=== PATIENT | female | born 1960 | race Caucasian/White ===

== ENCOUNTER 2023-01-06 07:31 | Day surgery (SDC) | payer OTHER, SELFPAY ==
--- NOTE | 2023-01-06 | PATH_ITS ---
[facility] Accession Number: [id number] No. of containers..01 Tissue . 01 Material submitted: . colon - ASCENDING POLYP . 01 Diagnosis: Ascending Colon Polyp: Colonic mucosa with no diagnostic abnormality, consistent with polypoid redundancy. Negative for dysplasia or malignancy. Additional step sections examined. MRV 01/12/2023 1453 Local . 01 Electronically signed: . Miles Ridley MD, PhD, Pathologist NPI- [id number] . 01 Gross description: . ASCENDING POLYP: Received in formalin is 1 fragment(s) of carlos, soft tissue measuring 0.4 x 0.3 x 0.2 cm submitted entirely in 1 cassette(s) /FELICIA 01/10/2023 2221 Local . 01 Pathologist provided ICD-10: K63.5 . 01 CPT . 053637 Specimen Comment: A courtesy copy of this report has been sent to [phone] Performed at: 01 [facility] [address] [place] [address] [address] [facility], [place], [place] [id number] MD Toni Renner MD Phone: [phone]
[2023-01-06 07:46] VITALS: BP 147/82; PULSE 52; RESP 19; TEMP 36.6; O2SAT 98; BMI 20.1
[2023-01-06] MEDS: LACTATED RINGERS 1,000 ML 100 ML IV (07:56)
--- NOTE | 2023-01-06 09:00 | P.HP_ITS ---
History of Present Illness History of Present Illness Date Patient Seen: 01/06/23 Time Patient Seen: 09:00 Chief complaint: SDC Narrative: Paz is here for colonoscopy. Her last 1 was about 7 years ago. She would polyps at her first colonoscopy but not the one 7 years family history of colon cancer [facility] Surgical History (Updated 01/10/18 @ 06:33 by Conversion Provider) History of third molar tooth extraction Status post laparotomy Status post laparotomy Family History (Updated 01/19/16 @ 00:00 by Conversion Provider) Father Cancer Grandfather Diabetes mellitus Hypertension High cholesterol Grandmother Hypertension High cholesterol Mother Age: 87 Breast cancer Hypertension High cholesterol Social History household members: spouse Smoking Status: Never smoker alcohol intake: current Meds Home Medications and Allergies Allergies Allergy/AdvReac Type Severity Reaction Status Date / Time Sulfa (Sulfonamide Allergy Unknown Unverified 12/21/17 13:08 Antibiotics) [SULFA (SULFONAMIDE ANTIBIOTICS)] Exam Vital Signs (past 8 hours): - 01/06/23 07:46 Temperature 97.9 F Pulse Rate 52 L Respiratory Rate 19 Blood Pressure 147/82 H Pulse Oximetry 98 Oxygen Delivery Method Room Air Oxygen Delivery Method Room Air Const General: healthy appearing Assessment & Plan Assessment and plan (1) Colon cancer screening: Status: Acute Plan We reviewed the risks and benefits of colonoscopy and she would like to proceed
[2023-01-06 09:31] VITALS: BP 101/59; PULSE 67; RESP 15; TEMP 37.1; O2SAT 99
--- NOTE | 2023-01-06 09:34 | PM.OP.COLON ---
Operative Date/Time/Diagnoses Date of procedure: 01/06/23 Time of procedure: 09:34 Pre-op diagnosis: Colon cancer screening Post-op diagnosis: same Procedure & Clinicians Study performed: Colonoscopy Same procedure as scheduled: Yes Surgeon: Neehmias Wheat Procedure Notes Procedure in detail: Surgeon: Nehemias Wheat MD Anesthesia: Tiburcio Montanez CRNA Procedure: The patient was brought to the endoscopy suite, placed in left lateral decubitus position. The patient was connected to monitoring devices. A time-out was performed. Sedation was administered. Once the patient was adequately sedated, a digital rectal exam was performed and was normal. The scope was then inserted and advanced to the cecum where the appendiceal orifice was identified and photographed. The scope was then slowly withdrawn over greater than 6 minutes. The mucosa was thoroughly inspected. There was a 5 mm polyp in the ascending colon removed with cold snare. The scope was retroflexed in the rectum. No other abnormalities were seen. The scope was straightened and removed. The patient was awakened and brought to recovery. Scope withdrawal time: 10 minutes Sedation time: 18 minutes EBL: 2 mL Findings: 5 mm polyp in the ascending colon Post-procedure Disposition: PACU
[2023-01-06 09:36] VITALS: BP 108/51; PULSE 66; RESP 14; O2SAT 96
[2023-01-06 09:41] VITALS: BP 109/61; PULSE 66; RESP 16; O2SAT 98
== END 2023-01-06 09:53 | disposition home or self-care (01) ==
PROVIDERS: PCP Nurse Practitioner; Referring Provider Surgery; Visit Provider Surgery
PROC: 0DJD8ZZ Inspection of Lower Intestinal Tract, Via Natural or Artificial Opening Endoscopic (ICD-10-PCS; CPT 45378; principal; 2023-01-06 08:45)
DX: Z12.11 Encounter for screening for malignant neoplasm of colon (principal); K63.5 Polyp of colon
CPT/HCPCS: 45385; J2704